=== PATIENT | female | born 1980 | race African-American/Black ===

== ENCOUNTER 2021-03-30 19:22 | Inpatient (IN) | payer MEDICAID, OTHER ==
[~2021-03-30] VITALS: Ht 170.2 cm; Wt 64.0 kg
[~2021-03-30 19:22] MED LIST: GABA-529 PO; OMEP20CA14 PO
[2021-03-30] MEDS ORDERED: SODIUM CHLORIDE 0.9% 1000ML BAG (SEPSIS BOLUS) IV ONE (19:45)
[2021-03-30] MEDS ORDERED: PIPERACILLIN/TAZ 3.375G PREMIX 50 ML IV ONE (20:15)
[2021-03-30 20:45] LABS: BASOPHILS % 0.1 % (0.0-2.0); EOSINOPHILS % 0.1 % (0.0-5.0); INR 2.3; LYMPHOCYTES % 10.6 % (20.0-50.0); MEAN CORPUSCULAR HEMOGLOBIN 19.4 pg (28.0-32.0); MEAN CORPUSCULAR VOLUME 69.7 fL (81.0-99.0); MEAN PLATELET VOLUME 8.3 fl (7.4-10.4); MONOCYTES % 8.5 % (2.0-8.0); NEUTROPHILS % 80.7 % (40.0-76.0); PLATELET 417 x1000/uL (130-400); RED CELL DISTRIBUTION WIDTH 44.6 % (11.6-14.6)
[2021-03-30 20:50] LABS: CHLORIDE 96 mEq/L (98-107)
[2021-03-30 20:55] LABS: HEMOGLOBIN. 1.4 g/dL (12.0-16.0)
[2021-03-30 20:56] LABS: HEMATOCRIT. 4.9 % (36.0-48.0)
[2021-03-30 20:58] LABS: BASOPHILS % 0.2 % (0.0-2.0); EOSINOPHILS % 0.1 % (0.0-5.0); LYMPHOCYTES % 9.6 % (20.0-50.0); MEAN CORPUSCULAR HEMOGLOBIN 20.5 pg (28.0-32.0); MEAN CORPUSCULAR VOLUME 70.9 fL (81.0-99.0); MEAN PLATELET VOLUME 7.5 fl (7.4-10.4); MONOCYTES % 7.3 % (2.0-8.0); NEUTROPHILS % 82.8 % (40.0-76.0); PLATELET 367 x1000/uL (130-400); RED BLOOD CELL COUNT 0.59 mill/uL (4.2-5.4); RED CELL DISTRIBUTION WIDTH 41.4 % (11.6-14.6)
[2021-03-30 21:03] LABS: HEMOGLOBIN. 1.2 g/dL (12.0-16.0)
[2021-03-30 21:05] LABS: CHLORIDE 97 mEq/L (98-107); HEMATOCRIT. 4.2 % (36.0-48.0)
[2021-03-30 21:07] LABS: INR 2.4
[2021-03-30] MEDS ORDERED: ACETAMINOPHEN 500MG TABLET PO ONE (21:30)
[2021-03-30 21:37] LABS: HAPTOGLOBIN 76 mg/dL (30-200)
[2021-03-30 22:09] LABS: PLATELET ESTIMATE INCREASED
[2021-03-31] VITALS (7 sets, daily range): BP systolic 100–120; BP diastolic 58–71
[2021-03-31 02:31] LABS: BASOPHILS % 0.1 % (0.0-2.0); LYMPHOCYTES % 9.1 % (20.0-50.0); MEAN CORPUSCULAR HEMOGLOBIN 28.3 pg (28.0-32.0); MEAN CORPUSCULAR VOLUME 85.3 fL (81.0-99.0); MEAN PLATELET VOLUME 7.8 fl (7.4-10.4); MONOCYTES % 9.3 % (2.0-8.0); NEUTROPHILS % 81.5 % (40.0-76.0); PLATELET 293 x1000/uL (130-400); RED BLOOD CELL COUNT 1.49 mill/uL (4.2-5.4); RED CELL DISTRIBUTION WIDTH 32.4 % (11.6-14.6)
[2021-03-31 02:39] LABS: HEMATOCRIT. 12.7 % (36.0-48.0); HEMOGLOBIN. 4.2 g/dL (12.0-16.0)
[2021-03-31] MEDS ORDERED: ONDANSETRON HCL 4MG/2ML INJ IV PRN (08:45)
[2021-03-31] MEDS ORDERED: ACETAMINOPHEN 325MG TABLET PO PRN (08:45)
[2021-03-31] MEDS ORDERED: DIPHENHYDRAMINE 50MG/ML VIAL IV PRN (08:45)
[2021-03-31] MEDS ORDERED: IPRATROPIUM/ALBUTEROL 0.5-3(2.5)MG/3ML NEB HHN PRN (08:45)
[2021-03-31] MEDS ORDERED: CLONIDINE 0.1MG TABLET PO PRN (08:45)
[2021-03-31 09:18] LABS: HEMATOCRIT 20.8 % (36.0-48.0); HEMOGLOBIN 7.1 g/dL (12.0-16.0)
[2021-03-31 16:02] LABS: HEMATOCRIT. 26.3 % (36.0-48.0); HEMOGLOBIN. 8.9 g/dL (12.0-16.0); MEAN CORPUSCULAR HEMOGLOBIN 29.5 pg (28.0-32.0); MEAN CORPUSCULAR VOLUME 86.7 fL (81.0-99.0); MEAN PLATELET VOLUME 8.8 fl (7.4-10.4); PLATELET 238 x1000/uL (130-400); RED BLOOD CELL COUNT 3.03 mill/uL (4.2-5.4); RED CELL DISTRIBUTION WIDTH 14.9 % (11.6-14.6)
[2021-03-31 16:20] LABS: T4 FREE 0.9 ng/dL (0.76-1.46)
[2021-03-31 17:07] LABS: NUCLEATED RED BLOOD CELLS 5 /100 WBC; PLATELET ESTIMATE NORMAL
[2021-04-01] VITALS: BP 109/75
[2021-04-01 04:00] VITALS: BP 95/63
[2021-04-01 06:16] LABS: EOSINOPHILS % 0.2 % (0.0-5.0); HEMATOCRIT. 26.5 % (36.0-48.0); HEMOGLOBIN. 9.3 g/dL (12.0-16.0); LYMPHOCYTES % 7.9 % (20.0-50.0); MEAN CORPUSCULAR HEMOGLOBIN 29.8 pg (28.0-32.0); MEAN CORPUSCULAR VOLUME 85.3 fL (81.0-99.0); MEAN PLATELET VOLUME 8.6 fl (7.4-10.4); MONOCYTES % 9.4 % (2.0-8.0); NEUTROPHILS % 82.5 % (40.0-76.0); PLATELET 174 x1000/uL (130-400); RED BLOOD CELL COUNT 3.11 mill/uL (4.2-5.4); RED CELL DISTRIBUTION WIDTH 14.9 % (11.6-14.6)
[2021-04-01 06:31] LABS: CHLORIDE 103 mEq/L (98-107)
[2021-04-01 06:43] LABS: LDL CHOLESTEROL 17 mg/dL (5-100)
[2021-04-01 06:44] LABS: HDL CHOLESTEROL 9 mg/dL (40-59)
[2021-04-01 08:00] VITALS: BP 106/76
[2021-04-01] MEDS ORDERED: POTASSIUM CHLORIDE 20MEQ TABLET SR PO SCH (11:45)
[2021-04-01 12:00] VITALS: BP 120/75
[2021-04-01 16:09] VITALS: BP 106/72
[2021-04-01 20:00] VITALS: BP 107/73
[2021-04-02] VITALS (7 sets, daily range): BP systolic 95–123; BP diastolic 56–70
[2021-04-02 10:41] LABS: HEMATOCRIT. 25.1 % (36.0-48.0); HEMOGLOBIN. 9.1 g/dL (12.0-16.0); MEAN CORPUSCULAR HEMOGLOBIN 30.6 pg (28.0-32.0); MEAN CORPUSCULAR VOLUME 84.8 fL (81.0-99.0); MEAN PLATELET VOLUME 8.6 fl (7.4-10.4); PLATELET 97 x1000/uL (130-400); RED BLOOD CELL COUNT 2.96 mill/uL (4.2-5.4)
[2021-04-02 10:53] LABS: CHLORIDE 103 mEq/L (98-107)
[2021-04-02 22:35] LABS: NUCLEATED RED BLOOD CELLS 4 /100 WBC; PLATELET ESTIMATE DECREASED
== END 2021-04-03 00:40 | disposition home or self-care (01) | DRG 532 ==
LOC: ER 19:22 → 7EST 23:13 → ENRESERV 03-31 04:18
PROVIDERS: ADMIT Internal Medicine; ATTEND Internal Medicine
PROC: 30233N1 Transfusion of Nonautologous Red Blood Cells into Peripheral Vein, Percutaneous Approach (ICD-10-PCS; principal; 2021-03-30)
DX: D25.9 Leiomyoma of uterus, unspecified (principal); E43 Unspecified severe protein-calorie malnutrition; D50.9 Iron deficiency anemia, unspecified; N83.292 Other ovarian cyst, left side; N92.0 Excessive and frequent menstruation with regular cycle; N93.9 Abnormal uterine and vaginal bleeding, unspecified; E87.6 Hypokalemia; Z60.2 Problems related to living alone; R74.01 Elevation of levels of liver transaminase levels; N83.291 Other ovarian cyst, right side; Z79.899 Other long term (current) drug therapy
CPT/HCPCS: 36415; 71045; 74176; 76830; 76856; 80048; 80053; 80061; 82962; 83010; 83605; 83615; 83880; 84439; 84443; 84481; 84484; 85014; 85018; 85025; 85044; 86304; 86850; 86900; 86920; 87207; 93005; 93970; 99291; J2405; J2543; J7030; P9016

== ENCOUNTER 2023-10-16 00:12 | Emergency (ER) | payer MEDICAID, OTHER ==
[~2023-10-16] VITALS: Ht 160 cm; Wt 63.5 kg
[~2023-10-16 00:12] MED LIST changes: +DOCU250C14 MT; +FERR325T6 MT; -GABA-529 PO; -OMEP20CA14 PO
[2023-10-16 00:52] VITALS: BP 100/56; PULSE 85; RESP 17; O2SAT 100
[2023-10-16 04:00] VITALS: TEMP 98.2
[2023-10-16] MEDS: ACETAMINOPHEN 325MG TABLET PO ONE (04:00)
[2023-10-16] MEDS ORDERED: ACET-2708 MT (05:00)
[2023-10-16] MEDS ORDERED: GUAI600T26 MT (05:00)
== END 2023-10-16 05:00 | disposition home or self-care (01) ==
LOC: ER 00:12
DX: B34.9 Viral infection, unspecified (principal); Z20.822 Contact with and (suspected) exposure to COVID-19
CPT/HCPCS: 71045; 87426; 99284

== ENCOUNTER 2024-08-13 13:17 | Emergency (ER) | payer BC, MEDICAID ==
[~2024-08-13] VITALS: Ht 160 cm; Wt 63.0 kg
[~2024-08-13 13:17] MED LIST changes: +ACET-2708 MT; +FERR325T23 MT; +GUAI600T26 MT
[2024-08-13 13:24] VITALS: O2SAT 98
[2024-08-13 21:51] VITALS: BP 116/50; PULSE 61; RESP 18; TEMP 36.7; O2SAT 98
== END 2024-08-13 21:49 | disposition home or self-care (01) ==
LOC: ER 13:17
DX: B34.9 Viral infection, unspecified (principal); F10.90 Alcohol use, unspecified, uncomplicated; Y90.9 Presence of alcohol in blood, level not specified
CPT/HCPCS: 71045; 99283